=== PATIENT | male | born 1925 | race Caucasian/White ===

== ENCOUNTER 2016-08-20 10:37 | Inpatient (IN) | payer MEDICARE, MEDICAID ==
--- NOTE | 2016-08-20 11:22 | ER Document Report ---
ED General - General Chief Complaint: Altered Mental Status Stated Complaint: ALTERED MENTAL STATUS Time seen by provider: 11:21 Mode of Arrival: Medic Information source: Transfer Record, Emergency Med Personnel Notes: This is an 89-year-old gentleman with a history of chronic kidney disease, COPD hypertension, hypothyroidism, CHF cognitive communication deficit, pulmonary fibrosis. Patient is brought in from [facility] because of the disorientation and altered mental status. Records report that he is normally alert and oriented 3. I called the patient's son who was on his way back from [place]. The patient's son states that the patient at baseline has fluctuating mental status Atif his 50% of the time is good, 50% of the time is confused). The patient is in the shelter/rehabilitation facility after a recent hip ORIF and knee surgery and is currently undergoing physical therapy. He is able to walk approximately 25 steps with assistance in therapy. Otherwise, he is not been ambulatory. TRAVEL OUTSIDE OF THE [place] IN LAST 30 DAYS: No - HPI Onset: Just prior to arrival Onset/Duration: Gradual Quality of pain: No pain Severity: None Pain Level: Denies Associated symptoms: Nonproductive cough. denies: Chills, Fever Exacerbated by: Denies Relieved by: Denies - Related Data Allergies/Adverse Reactions: No Known Allergies Allergy (Verified 06/03/16 08:26) Home Medications: Current Home Medications Lorazepam [Ativan 1 mg Tablet] 0.25 mg PO Q8HP PRN 08/20/16 [History] Megestrol Acetate [Megace] 400 mg PO DAILY 08/20/16 [History] Past Medical History - General Information source: Transfer Record - Social History Smoking Status: Never Smoker Cigarette use (# per day): No Chew tobacco use (# tins/day): No Frequency of alcohol use: None Drug Abuse: None Lives with: Long Term Family History: None - Past Medical History Cardiac Medical History: Reports: Hx Hypertension Denies: Hx Coronary Artery Disease, Hx Heart Attack Pulmonary Medical History: Reports: Hx COPD - 2L NC Denies: Hx Asthma, Hx Bronchitis, Hx Pneumonia Neurological Medical History: Denies: Hx Cerebrovascular Accident, Hx Seizures Endocrine Medical History: Reports: Hx Hypothyroidism Renal/ Medical History: Reports: Hx End Stage Renal Disease GI Medical History: Reports: Hx Gastroesophageal Reflux Disease Musculoskeltal Medical History: Reports Hx Arthritis - Generalized osteoarthritis Psychiatric Medical History: Reports: Hx Depression - Immunizations Hx Diphtheria, Pertussis, Tetanus Vaccination: Yes Review of Systems - Review of Systems Constitutional: denies: Chills, Fever EENT: No symptoms reported Cardiovascular: No symptoms reported Respiratory: See HPI Gastrointestinal: No symptoms reported Genitourinary: No symptoms reported Male Genitourinary: No symptoms reported Musculoskeletal: No symptoms reported Skin: No symptoms reported Hematologic/Lymphatic: No symptoms reported Neurological/Psychological: See HPI Physical Exam - Vital signs Vitals: Resp Pulse Ox 21 H 97 08/20/16 11:27 08/20/16 11:27 Notes: Physical exam: GENERAL: 89-year-old man, alert but he is confused, no distress. He does appear tachypnea with a respiratory rate of 28. His temperature is 98.9 rectally HEAD: Atraumatic, normocephalic. EYES: Pupils equal round and reactive to light, extraocular movements intact, sclera anicteric, conjunctiva are normal. ENT: Left hearing aid, nares patent, oropharynx clear without exudates. Dry mucous membranes. NECK: Normal range of motion, supple without lymphadenopathy or JVD. LUNGS: Breath sounds clear to auscultation bilaterally and equal. No wheezes rales or rhonchi. HEART: Regular rate and rhythm without murmurs, rubs or gallops. ABDOMEN: Soft, nontender, normoactive bowel sounds. No guarding, no rebound. No masses appreciated. Rectal: Brown stool, sent for study, no sacral breakdown. EXTREMITIES: Normal range of motion, no pitting or edema. No clubbing or cyanosis. NEUROLOGICAL: Cranial nerves II through XII grossly intact. Moving all extremities. SKIN: Warm, Dry, normal turgor, no rashes or lesions noted. Course - Re-evaluation Re-evalutation: 08/20/16 17:55 Note: The patient presented with decreased mental status. He did not have any respiratory complaints and there was no suspicion for pneumonia in the beginning. The patient has been afebrile. X-ray does show possible pneumonia and he is clearly dehydrated on exam and his renal function is worse than before consistent with dehydration. We'll admit for IV fluids and antibiotics. - Vital Signs Vital signs: Temp Pulse Resp BP Pulse Ox 98.4 F 69 17 136/61 H 95 08/20/16 16:53 08/20/16 11:28 08/20/16 16:01 08/20/16 16:01 08/20/16 16:01 - Laboratory Result Diagrams: 08/20/16 10:59 08/20/16 10:59 Laboratory results interpreted by me: 08/20/16 08/20/16 10:59 10:59 RBC 2.69 L Hgb 8.3 L Hct 24.5 L RDW 16.0 H Potassium 5.2 H Chloride 108 H Carbon Dioxide 18 L BUN 48 H Creatinine 2.51 H Est GFR ( Amer) 29 L Est GFR (Non-Af Amer) 24 L AST 13 L Albumin 2.9 L - Diagnostic Test Radiology reviewed: Image reviewed, Reports reviewed - Lower pneumonia - EKG Interpretation by Me Rate: Normal Rhythm: NSR - EKG shows normal sinus rhythm with a ventricular rate of 67, there is some evidence of LVH Discharge - Discharge Clinical Impression: pneumonia, dehydration Condition: Stable Disposition: HOME, SELF-CARE Admitting Provider: [facility] Unit Admitted: Medical Floor
[2016-08-20 11:37] LABS: ABSOLUTE BASOPHILS # (AUTO) 0.1 10^3/uL (0.0-0.2); ABSOLUTE EOSINOPHILS # (AUTO) 0.5 10^3/uL (0.0-0.6); ABSOLUTE LYMPHOCYTES (AUTO) 1.5 10^3/uL (0.5-4.7); ABSOLUTE MONOCYTES (AUTO) 1.2 10^3/uL (0.1-1.4); ABSOLUTE NEUT (AUTO) 7.3 10^3/uL (1.7-8.2); BASOPHILS % (AUTO) 0.7 % (0-2); EOSINOPHILS % (AUTO) 4.8 % (0-6); HEMATOCRIT 24.5 % (37.9-51.0); HEMOGLOBIN 8.3 g/dL (13.5-17.0); HGB HCT DIFFERENCE 0.4; MEAN CORPUSCULAR HEMOGLOBIN 30.7 pg (27.0-33.4); MEAN CORPUSCULAR HGB CONC 33.7 g/dL (32.0-36.0); MEAN CORPUSCULAR VOLUME 91 fl (80-97); MONOCYTES % (AUTO) 11.4 % (3-13); RED BLOOD COUNT 2.69 10^6/uL (4.35-5.55); SEGMENTED NEUTROPHILS % (AUTO) 69.1 % (42-78); WHITE BLOOD COUNT 10.5 10^3/uL (4.0-10.5)
[2016-08-20 11:46] LABS: ALANINE AMINOTRANSFERASE 22 U/L (21-72); ALBUMIN 2.9 g/dL (3.5-5.0); ALKALINE PHOSPHATASE 73 U/L (38-126); ANION GAP 14 (5-19); ASPARTATE AMINO TRANSFERASE 13 U/L (17-59); BILIRUBIN,TOTAL 0.7 mg/dL (0.2-1.3); BLOOD UREA NITROGEN 48 mg/dL (7-20); CALCIUM 9.2 mg/dL (8.4-10.2); CARBON DIOXIDE 18 mmol/L (22-30); CHLORIDE 108 mmol/L (98-107); CREATININE RESULT 2.51 mg/dL (0.52-1.25); GLUCOSE 96 mg/dL (75-110); MAGNESIUM 2.1 mg/dL (1.6-2.3); POTASSIUM 5.2 mmol/L (3.6-5.0); SODIUM 139.9 mmol/L (137-145); TOTAL PROTEIN 7.1 g/dL (6.3-8.2)
[2016-08-20 11:47] LABS: ALCOHOL < 10 mg/dL (NONE DETECTED)
--- NOTE | 2016-08-20 11:48 | EKG REPORT ---
SEVERITY:- ABNORMAL ECG - SINUS RHYTHM PROBABLE LEFT VENTRICULAR HYPERTROPHY : Confirmed by: Madeline Amador 20-Aug-2016 11:48:00
[2016-08-20 12:10] LABS: APPEARANCE,URINE SLIGHTLY-CLOUDY; BILIRUBIN,URINE NEGATIVE (NEGATIVE); GLUCOSE, URINE NEGATIVE (NEGATIVE); KETONES,URINE NEGATIVE (NEGATIVE); LEUKOCYTE ESTERASE,URINE NEGATIVE (NEGATIVE); NITRITE,URINE NEGATIVE (NEGATIVE); PROTEIN,URINE NEGATIVE (NEGATIVE); URINE SPECIFIC GRAVITY 1.013; UROBILINOGEN,URINE NEGATIVE mg/dL (<2.0)
[2016-08-20] MEDS ORDERED: NORMAL SALINE 1000 ML 1,000 ML IV PRN (12:11)
[2016-08-20 12:24] LABS: URINE BARBITURATES SCREEN NEGATIVE; URINE METHADONE SCREEN NEGATIVE; URINE OPIATES LOW NEGATIVE; URINE PHENCYCLIDINE SCREEN NEGATIVE
[2016-08-20] MEDS ORDERED: LEVOFLOXACIN 500 MG/D5W RTU 100 ML IV ONE (17:54)
[2016-08-20] MEDS: NORMAL SALINE 1000 ML 1,000 ML IV PRN (18:17)
[2016-08-20] MEDS ORDERED: LOPERAMIDE HCL 2 MG PO PRN (20:15)
[2016-08-20] MEDS ORDERED: (PENDING PHARMACY ID) (Umeclidinium Brm/Vilanterol Tr [Anoro Ellipta 62.5-25 Mcg Inh] 1 EA IH SCH (20:15)
[2016-08-20] MEDS ORDERED: (PENDING PHARMACY ID) (Omeprazole [Prilosec] 20 MG) PO SCH (20:15)
[2016-08-20] MEDS ORDERED: LORAZEPAM 1 MG TABLET PO PRN (20:15)
[2016-08-20] MEDS ORDERED: (PENDING PHARMACY ID) (Acetaminophen [Acetaminophen Extra Strength] 500 MG) PO PRN (20:15)
[2016-08-20] MEDS ORDERED: (PENDING PHARMACY ID) (Ferrous Sulfate [Iron] 325 MG) PO SCH (20:15)
[2016-08-20] MEDS ORDERED: GABAPENTIN 300 MG CAPSULE PO ONE (21:00)
[2016-08-20] MEDS ORDERED: LEVOTHYROXINE SODIUM 0.025 MG TABLET PO ONE (21:00)
[2016-08-20] MEDS ORDERED: ENOXAPARIN SODIUM INJ 30 MG/0.3 ML DISP.SYRIN SUBCUT ONE (21:00)
[2016-08-20] MEDS ORDERED: AMLODIPINE BESYLATE 10 MG TABLET PO ONE (21:00)
[2016-08-20] MEDS ORDERED: FERROUS SULFATE 325 MG TABLET PO ONE (21:30)
[2016-08-20] MEDS ORDERED: LANSOPRAZOLE 15 MG TAB.RAP.DR PO ONE (21:30)
[2016-08-21] MEDS: ESCITALOPRAM OXALATE 10 MG TABLET PO SCH ×2 (00:01→21:53)
[2016-08-21 05:21] LABS: ALANINE AMINOTRANSFERASE 19 U/L (21-72); ALBUMIN 2.8 g/dL (3.5-5.0); ALKALINE PHOSPHATASE 67 U/L (38-126); ANION GAP 13 (5-19); ASPARTATE AMINO TRANSFERASE 12 U/L (17-59); BILIRUBIN,TOTAL 0.8 mg/dL (0.2-1.3); BLOOD UREA NITROGEN 37 mg/dL (7-20); CALCIUM 8.8 mg/dL (8.4-10.2); CARBON DIOXIDE 15 mmol/L (22-30); CHLORIDE 114 mmol/L (98-107); CREATININE RESULT 2.18 mg/dL (0.52-1.25); GLUCOSE 83 mg/dL (75-110); POTASSIUM 4.8 mmol/L (3.6-5.0); SODIUM 142.2 mmol/L (137-145); TOTAL PROTEIN 6.3 g/dL (6.3-8.2)
[2016-08-21 05:40] LABS: ABSOLUTE BASOPHILS # (AUTO) 0.1 10^3/uL (0.0-0.2); ABSOLUTE EOSINOPHILS # (AUTO) 0.3 10^3/uL (0.0-0.6); ABSOLUTE LYMPHOCYTES (AUTO) 1.8 10^3/uL (0.5-4.7); ABSOLUTE MONOCYTES (AUTO) 1.1 10^3/uL (0.1-1.4); ABSOLUTE NEUT (AUTO) 6.7 10^3/uL (1.7-8.2); BASOPHILS % (AUTO) 0.7 % (0-2); EOSINOPHILS % (AUTO) 3.3 % (0-6); HGB HCT DIFFERENCE 0.4; LYMPHOCYTES % (AUTO) 18.2 % (13-45); MEAN CORPUSCULAR HEMOGLOBIN 31.3 pg (27.0-33.4); MEAN CORPUSCULAR VOLUME 92 fl (80-97); MONOCYTES % (AUTO) 10.7 % (3-13); SEGMENTED NEUTROPHILS % (AUTO) 67.1 % (42-78)
[2016-08-21 05:47] LABS: HEMOGLOBIN 7.8 g/dL (13.5-17.0)
[2016-08-21] MEDS: NORMAL SALINE 1000 ML 1,000 ML IV PRN ×2 (06:48→23:45)
[2016-08-21] MEDS ORDERED: ENOXAPARIN SODIUM INJ 40 MG/0.4 ML DISP.SYRIN SUBCUT SCH (08:00)
[2016-08-21] MEDS ORDERED: LORAZEPAM 0.5 MG TABLET PO PRN (08:48)
[2016-08-21] MEDS ORDERED: LOPERAMIDE HCL 2 MG CAPSULE PO PRN (08:52)
[2016-08-21] MEDS: LOSARTAN POTASSIUM 50 MG TABLET PO SCH (11:58)
[2016-08-21] MEDS: GABAPENTIN 300 MG CAPSULE PO SCH ×3 (12:01→17:53)
[2016-08-21] MEDS: AMLODIPINE BESYLATE 10 MG TABLET PO SCH (12:02)
[2016-08-21] MEDS: LEVOTHYROXINE SODIUM 0.025 MG TABLET PO SCH (12:02)
[2016-08-21] MEDS: FERROUS SULFATE 325 MG TABLET PO SCH (12:02)
[2016-08-21] MEDS: ENOXAPARIN SODIUM INJ 30 MG/0.3 ML DISP.SYRIN SUBCUT SCH (12:03)
[2016-08-21] MEDS: LANSOPRAZOLE 15 MG TAB.RAP.DR PO SCH (12:03)
[2016-08-21 13:40] LABS: APPEARANCE,URINE CLOUDY; BILIRUBIN,URINE NEGATIVE (NEGATIVE); GLUCOSE, URINE NEGATIVE (NEGATIVE); KETONES,URINE NEGATIVE (NEGATIVE); LEUKOCYTE ESTERASE,URINE LARGE (NEGATIVE); NITRITE,URINE NEGATIVE (NEGATIVE); PROTEIN,URINE 100 mg/dL (NEGATIVE); URINE SPECIFIC GRAVITY 1.012; UROBILINOGEN,URINE NEGATIVE mg/dL (<2.0)
[2016-08-21] MEDS ORDERED: LEVOFLOXACIN 750 MG/D5W RTU 750 MG/150 ML RTUPB IV SCH (18:00)
--- NOTE | 2016-08-21 18:42 | PDOC H&P ---
History of Present Illness Admission Date/PCP: 08/20/16 18:51 AISHA WILBURN, History of Present Illness: JANAE CELESTE JR is a 89 year old male with history of baseline dementia, pulmonary fibrosis, chronic obstructive lung disease, presently resident of the long-term. He was transferred from the long-term to the emergency room because of altered mental status, in the emergency room he was evaluated, chest x-ray was done and it was felt that he has pneumonia. Patient with multiple comorbid conditions including chronic kidney disease stage IV with anemia of chronic kidney disease stage IV. History taking is a challenge because of the baseline dementia. Past Medical History Cardiac Medical History: Reports: Hypertension Pulmonary Medical History: Reports: Chronic Obstructive Pulmonary Disease (COPD ) - 2L NC, Other - Pulmonary fibrosis Endocrine Medical History: Reports: Hypothyroidism Renal/ Medical History: Reports: Chronic Kidney Disease - Stage IV GI Medical History: Reports: Gastroesophageal Reflux Disease Musculoskeltal Medical History: Reports: Arthritis - Generalized osteoarthritis Psychiatric Medical History: Reports: Depression Hematology: Reports: Anemia Social History Lives with: Skilled Nursing Smoking Status: Never Smoker Frequency of Alcohol Use: None Hx Recreational Drug Use: No Hx Prescription Drug Abuse: No Family History Family History: None Parental Family History Reviewed: Yes Children Family History Reviewed: Yes Sibling(s) Family History Reviewed.: Yes Medication/Allergy Home Medications: Amlodipine Besylate 10 mg PO DAILY 01/18/16 Escitalopram Oxalate [Lexapro 10 mg Tablet] 20 mg PO QHS 01/18/16 Ferrous Sulfate [Iron] 325 mg PO DAILY 01/18/16 Omeprazole [Prilosec] 20 mg PO DAILY 01/18/16 Losartan Potassium [Cozaar 50 mg Tablet] 100 mg PO DAILY #0 tablet 01/27/16 Loperamide HCl [Anti-Diarrheal] 2 mg PO ASDIR PRN 03/08/16 Acetaminophen [Acetaminophen Extra Strength] 500 mg PO Q6HP PRN 03/22/16 Gabapentin 300 mg PO TID 03/22/16 Ipratropium/Albuterol Sulfate [Duoneb 3 ml Ampul] 3 ml NEB RTQ6HP PRN 03/22/16 Levothyroxine Sodium [Synthroid 0.025 mg Tablet] 0.025 mg PO DAILY #0 tablet 02/01 Umeclidinium Brm/Vilanterol Tr [Anoro Ellipta 62.5-25 Mcg INH] 1 each IH DAILY 05/06/16 Lorazepam [Ativan 1 mg Tablet] 0.25 mg PO Q8HP PRN 08/20/16 Megestrol Acetate [Megace] 400 mg PO DAILY 08/20/16 Allergies/Adverse Reactions: No Known Allergies Allergy (Verified 06/03/16 08:26) Review of Systems ROS unobtainable: Due to mental status Physical Exam Vital Signs: Temp Pulse Resp BP Pulse Ox 97.9 F 77 16 139/57 H 96 08/21/16 14:00 08/21/16 16:00 08/21/16 16:00 08/21/16 14:00 08/21/16 16:00 Intake & Output 08/20/16 08/21/16 08/22/16 06:59 06:59 06:59 Intake Total 1100 400 Output Total 1000 1000 Balance 100 -600 Weight 49.7 kg General appearance: PRESENT: hard of hearing, other - Patient is very confused Head exam: PRESENT: atraumatic, normocephalic Eye exam: PRESENT: PERRLA Mouth exam: PRESENT: neck supple Neck exam: PRESENT: full ROM Respiratory exam: PRESENT: crackles Cardiovascular exam: PRESENT: +S1, +S2 Vascular exam: PRESENT: normal capillary refill GI/Abdominal exam: PRESENT: normal bowel sounds, soft Rectal exam: PRESENT: deferred Neurological exam: PRESENT: alert - But confused Results Laboratory Results: 08/21/16 05:32 08/21/16 04:43 08/21/16 08/21/16 08/21/16 04:43 04:43 05:32 WBC Cancelled 10.0 RBC Cancelled 2.50 L Hgb Cancelled 7.8 L Hct Cancelled 23.0 L MCV Cancelled 92 MCH Cancelled 31.3 MCHC Cancelled 34.0 RDW Cancelled 16.0 H Plt Count Cancelled 310 Seg Neutrophils % Cancelled 67.1 Lymphocytes % Cancelled 18.2 Monocytes % Cancelled 10.7 Eosinophils % Cancelled 3.3 Basophils % Cancelled 0.7 Absolute Neutrophils Cancelled 6.7 Absolute Lymphocytes Cancelled 1.8 Absolute Monocytes Cancelled 1.1 Absolute Eosinophils Cancelled 0.3 Absolute Basophils Cancelled 0.1 Retic Count (auto) Absolute Retic Sodium 142.2 Potassium 4.8 Chloride 114 H Carbon Dioxide 15 L Anion Gap 13 BUN 37 H Creatinine 2.18 H Est GFR ( Amer) 35 L Est GFR (Non-Af Amer) 29 L Glucose 83 Calcium 8.8 Iron TIBC % Saturation Ferritin Total Bilirubin 0.8 AST 12 L ALT 19 L Alkaline Phosphatase 67 Total Protein 6.3 Albumin 2.8 L Vitamin B12 Folate Urine Color Urine Appearance Urine pH Ur Specific [place] Urine Protein Urine Glucose (UA) Urine Ketones Urine Blood Urine Nitrite Ur Leukocyte Esterase Urine WBC (Auto) Urine RBC (Auto) 08/21/16 08/21/16 08/21/16 05:32 05:32 13:15 WBC RBC Hgb Hct MCV MCH MCHC RDW Plt Count Seg Neutrophils % Lymphocytes % Monocytes % Eosinophils % Basophils % Absolute Neutrophils Absolute Lymphocytes Absolute Monocytes Absolute Eosinophils Absolute Basophils Retic Count (auto) 1.44 Absolute Retic 0.036 Sodium Potassium Chloride Carbon Dioxide Anion Gap BUN Creatinine Est GFR ( Amer) Est GFR (Non-Af Amer) Glucose Calcium Iron 43 L TIBC 186 L % Saturation 23 Ferritin 900.00 H Total Bilirubin AST ALT Alkaline Phosphatase Total Protein Albumin Vitamin B12 304.0 Folate 9.80 Urine Color YELLOW Urine Appearance CLOUDY Urine pH 5.0 Ur Specific [place] 1.012 Urine Protein 100 H Urine Glucose (UA) NEGATIVE Urine Ketones NEGATIVE Urine Blood LARGE H Urine Nitrite NEGATIVE Ur Leukocyte Esterase LARGE H Urine WBC (Auto) >182 Urine RBC (Auto) >182 08/20/16 20:25 Troponin I < 0.012 Impressions: Chest X-Ray 08/20/16 13:00 IMPRESSION: Obstructive lung disease Increased interstitial markings at the bases likely pulmonary fibrosis Minimal consolidation right lateral costophrenic sulcus atelectasis versus pneumonia. Assessment & Plan - Diagnosis (1) Pneumonia Qualifiers: Pneumonia type: due to unspecified organism Laterality: unspecified laterality Lung location: unspecified part of lung Qualified Code(s) : J18.9 - Pneumonia, unspecified organism Is this a current diagnosis for this admission?: YesPlan: Patient admitted because of pneumonia, will be treated with IV antibiotic (2) Metabolic encephalopathy Is this a current diagnosis for this admission?: Yes (3) Pulmonary fibrosis Is this a current diagnosis for this admission?: Yes (4) Chronic kidney disease, stage IV (severe) Is this a current diagnosis for this admission?: Yes
[2016-08-21] MEDS ORDERED: NORMAL SALINE 250 ML IV PRN ×2 (18:46)
--- NOTE | 2016-08-21 18:46 | PDOC PROGRESS REPORT ---
Subjective Progress Note for:: 08/21/16 Subjective:: Patient is very confused, a DO NOT RESUSCITATE status, he has anemia of chronic kidney disease, he be transfused with blood Physical Exam Vital Signs: Temp Pulse Resp BP Pulse Ox 97.9 F 77 16 139/57 H 96 08/21/16 14:00 08/21/16 16:00 08/21/16 16:00 08/21/16 14:00 08/21/16 16:00 Intake & Output 08/20/16 08/21/16 08/22/16 06:59 06:59 06:59 Intake Total 1100 400 Output Total 1000 1000 Balance 100 -600 Weight 49.7 kg General appearance: PRESENT: disheveled Respiratory exam: PRESENT: crackles Cardiovascular exam: PRESENT: +S1, +S2 GI/Abdominal exam: PRESENT: soft Neurological exam: PRESENT: alert - Very confused Results Laboratory Results: 08/21/16 05:32 08/21/16 04:43 08/21/16 08/21/16 08/21/16 04:43 04:43 05:32 WBC Cancelled 10.0 RBC Cancelled 2.50 L Hgb Cancelled 7.8 L Hct Cancelled 23.0 L MCV Cancelled 92 MCH Cancelled 31.3 MCHC Cancelled 34.0 RDW Cancelled 16.0 H Plt Count Cancelled 310 Seg Neutrophils % Cancelled 67.1 Lymphocytes % Cancelled 18.2 Monocytes % Cancelled 10.7 Eosinophils % Cancelled 3.3 Basophils % Cancelled 0.7 Absolute Neutrophils Cancelled 6.7 Absolute Lymphocytes Cancelled 1.8 Absolute Monocytes Cancelled 1.1 Absolute Eosinophils Cancelled 0.3 Absolute Basophils Cancelled 0.1 Retic Count (auto) Absolute Retic Sodium 142.2 Potassium 4.8 Chloride 114 H Carbon Dioxide 15 L Anion Gap 13 BUN 37 H Creatinine 2.18 H Est GFR ( Amer) 35 L Est GFR (Non-Af Amer) 29 L Glucose 83 Calcium 8.8 Iron TIBC % Saturation Ferritin Total Bilirubin 0.8 AST 12 L ALT 19 L Alkaline Phosphatase 67 Total Protein 6.3 Albumin 2.8 L Vitamin B12 Folate Urine Color Urine Appearance Urine pH Ur Specific [place] Urine Protein Urine Glucose (UA) Urine Ketones Urine Blood Urine Nitrite Ur Leukocyte Esterase Urine WBC (Auto) Urine RBC (Auto) 08/21/16 08/21/16 08/21/16 05:32 05:32 13:15 WBC RBC Hgb Hct MCV MCH MCHC RDW Plt Count Seg Neutrophils % Lymphocytes % Monocytes % Eosinophils % Basophils % Absolute Neutrophils Absolute Lymphocytes Absolute Monocytes Absolute Eosinophils Absolute Basophils Retic Count (auto) 1.44 Absolute Retic 0.036 Sodium Potassium Chloride Carbon Dioxide Anion Gap BUN Creatinine Est GFR ( Amer) Est GFR (Non-Af Amer) Glucose Calcium Iron 43 L TIBC 186 L % Saturation 23 Ferritin 900.00 H Total Bilirubin AST ALT Alkaline Phosphatase Total Protein Albumin Vitamin B12 304.0 Folate 9.80 Urine Color YELLOW Urine Appearance CLOUDY Urine pH 5.0 Ur Specific [place] 1.012 Urine Protein 100 H Urine Glucose (UA) NEGATIVE Urine Ketones NEGATIVE Urine Blood LARGE H Urine Nitrite NEGATIVE Ur Leukocyte Esterase LARGE H Urine WBC (Auto) >182 Urine RBC (Auto) >182 08/20/16 20:25 Troponin I < 0.012 Impressions: Chest X-Ray 08/20/16 13:00 IMPRESSION: Obstructive lung disease Increased interstitial markings at the bases likely pulmonary fibrosis Minimal consolidation right lateral costophrenic sulcus atelectasis versus pneumonia. Assessment & Plan - Diagnosis (1) Pneumonia Qualifiers: Pneumonia type: due to unspecified organism Laterality: unspecified laterality Lung location: unspecified part of lung Qualified Code(s) : J18.9 - Pneumonia, unspecified organism Is this a current diagnosis for this admission?: Yes (2) Metabolic encephalopathy Is this a current diagnosis for this admission?: Yes (3) Pulmonary fibrosis Is this a current diagnosis for this admission?: Yes (4) Chronic kidney disease, stage IV (severe) Is this a current diagnosis for this admission?: Yes (5) Anemia in chronic kidney disease Is this a current diagnosis for this admission?: YesPlan: He will be transfused with blood thank you
[2016-08-22] MEDS: IPRATROPIUM/ALBUTEROL 0.5-2.5 MG/3 ML AMPUL NEB PRN (04:49)
[2016-08-22] MEDS: ACETAMINOPHEN 325 MG TABLET PO PRN (05:03)
[2016-08-22 06:34] LABS: ABSOLUTE EOSINOPHILS # (AUTO) 0.3 10^3/uL (0.0-0.6); ABSOLUTE MONOCYTES (AUTO) 1.2 10^3/uL (0.1-1.4); ABSOLUTE NEUT (AUTO) 8.6 10^3/uL (1.7-8.2); ALANINE AMINOTRANSFERASE 21 U/L (21-72); ALBUMIN 2.8 g/dL (3.5-5.0); ALKALINE PHOSPHATASE 71 U/L (38-126); ANION GAP 15 (5-19); ASPARTATE AMINO TRANSFERASE 13 U/L (17-59); BASOPHILS % (AUTO) 0.4 % (0-2); BILIRUBIN,TOTAL 0.8 mg/dL (0.2-1.3); BLOOD UREA NITROGEN 27 mg/dL (7-20); CALCIUM 8.8 mg/dL (8.4-10.2); CARBON DIOXIDE 13 mmol/L (22-30); CHLORIDE 115 mmol/L (98-107); CREATININE RESULT 1.84 mg/dL (0.52-1.25); EOSINOPHILS % (AUTO) 2.6 % (0-6); GLUCOSE 97 mg/dL (75-110); HEMATOCRIT 21.7 % (37.9-51.0); HGB HCT DIFFERENCE -0.1; LYMPHOCYTES % (AUTO) 16.5 % (13-45); MEAN CORPUSCULAR HEMOGLOBIN 30.2 pg (27.0-33.4); MEAN CORPUSCULAR HGB CONC 33.2 g/dL (32.0-36.0); MEAN CORPUSCULAR VOLUME 91 fl (80-97); MONOCYTES % (AUTO) 9.7 % (3-13); POTASSIUM 3.9 mmol/L (3.6-5.0); RED BLOOD COUNT 2.39 10^6/uL (4.35-5.55); RED CELL DISTRIBUTION WIDTH 15.6 % (11.5-14.0); SEGMENTED NEUTROPHILS % (AUTO) 70.8 % (42-78); SODIUM 142.7 mmol/L (137-145); TOTAL PROTEIN 6.3 g/dL (6.3-8.2); WHITE BLOOD COUNT 12.1 10^3/uL (4.0-10.5)
[2016-08-22 06:37] LABS: HEMOGLOBIN 7.2 g/dL (13.5-17.0)
[2016-08-22] MEDS: GABAPENTIN 300 MG CAPSULE PO SCH ×3 (09:22→17:05)
[2016-08-22] MEDS: LANSOPRAZOLE 15 MG TAB.RAP.DR PO SCH (09:22)
[2016-08-22] MEDS: LEVOTHYROXINE SODIUM 0.025 MG TABLET PO SCH (09:22)
[2016-08-22] MEDS: ENOXAPARIN SODIUM INJ 30 MG/0.3 ML DISP.SYRIN SUBCUT SCH (09:22)
[2016-08-22] MEDS: LOSARTAN POTASSIUM 50 MG TABLET PO SCH (09:22)
[2016-08-22] MEDS: FERROUS SULFATE 325 MG TABLET PO SCH (09:22)
[2016-08-22] MEDS: AMLODIPINE BESYLATE 10 MG TABLET PO SCH (09:22)
[2016-08-22] MEDS ORDERED: LEVOFLOXACIN 500 MG/D5W RTU 500 MG/100 ML RTUPB IV SCH (10:00)
[2016-08-22 16:20] LABS: HGB HCT DIFFERENCE -1.3; MEAN CORPUSCULAR HEMOGLOBIN 28.4 pg (27.0-33.4); MEAN CORPUSCULAR HGB CONC 31.9 g/dL (32.0-36.0); MEAN CORPUSCULAR VOLUME 89 fl (80-97); RED BLOOD COUNT 3.47 10^6/uL (4.35-5.55); RED CELL DISTRIBUTION WIDTH 16.9 % (11.5-14.0); WHITE BLOOD COUNT 11.2 10^3/uL (4.0-10.5)
[2016-08-22 16:26] LABS: HEMOGLOBIN 9.9 g/dL (13.5-17.0)
[2016-08-22] MEDS: LEVOFLOXACIN 500 MG/D5W RTU 500 MG/100 ML RTUPB IV SCH (17:05)
--- NOTE | 2016-08-22 19:49 | PDOC PROGRESS REPORT ---
Subjective Progress Note for:: 08/22/16 Subjective:: Patient was seen by the bedside, very hard of hearing Physical Exam Vital Signs: Temp Pulse Resp BP Pulse Ox 98.3 F 86 16 160/60 H 99 08/22/16 15:22 08/22/16 16:00 08/22/16 16:00 08/22/16 15:22 08/22/16 16:00 Intake & Output 08/21/16 08/22/16 08/23/16 06:59 06:59 06:59 Intake Total 1100 1060 1270 Output Total 1000 1600 400 Balance 100 -540 870 Weight 49.7 kg 49.7 kg General appearance: PRESENT: no acute distress Eye exam: PRESENT: PERRLA Respiratory exam: PRESENT: crackles Cardiovascular exam: PRESENT: +S1, +S2 GI/Abdominal exam: PRESENT: soft Neurological exam: PRESENT: alert Results Laboratory Results: 08/22/16 15:40 08/22/16 05:55 08/21/16 08/21/16 08/22/16 05:32 20:00 05:55 WBC 12.1 H RBC 2.39 L Hgb 7.2 L Hct 21.7 L MCV 91 MCH 30.2 MCHC 33.2 RDW 15.6 H Plt Count 277 Seg Neutrophils % 70.8 Lymphocytes % 16.5 Monocytes % 9.7 Eosinophils % 2.6 Basophils % 0.4 Absolute Neutrophils 8.6 H Absolute Lymphocytes 2.0 Absolute Monocytes 1.2 Absolute Eosinophils 0.3 Absolute Basophils 0.0 Sodium Potassium Chloride Carbon Dioxide Anion Gap BUN Creatinine Est GFR ( Amer) Est GFR (Non-Af Amer) Glucose Calcium Transferrin 128 L Total Bilirubin AST ALT Alkaline Phosphatase Total Protein Albumin Blood Type O POSITIVE Antibody Screen NEGATIVE 08/22/16 08/22/16 05:55 15:40 WBC 11.2 H RBC 3.47 L Hgb 9.9 L D Hct 31.0 L MCV 89 MCH 28.4 MCHC 31.9 L RDW 16.9 H Plt Count 266 Seg Neutrophils % Lymphocytes % Monocytes % Eosinophils % Basophils % Absolute Neutrophils Absolute Lymphocytes Absolute Monocytes Absolute Eosinophils Absolute Basophils Sodium 142.7 Potassium 3.9 Chloride 115 H Carbon Dioxide 13 L Anion Gap 15 BUN 27 H Creatinine 1.84 H Est GFR ( Amer) 42 L Est GFR (Non-Af Amer) 35 L Glucose 97 Calcium 8.8 Transferrin Total Bilirubin 0.8 AST 13 L ALT 21 Alkaline Phosphatase 71 Total Protein 6.3 Albumin 2.8 L Blood Type Antibody Screen 08/20/16 20:25 Troponin I < 0.012 Impressions: Chest X-Ray 08/20/16 13:00 IMPRESSION: Obstructive lung disease Increased interstitial markings at the bases likely pulmonary fibrosis Minimal consolidation right lateral costophrenic sulcus atelectasis versus pneumonia. Assessment & Plan - Diagnosis (1) Pneumonia Qualifiers: Pneumonia type: due to unspecified organism Laterality: unspecified laterality Lung location: unspecified part of lung Qualified Code(s) : J18.9 - Pneumonia, unspecified organism Is this a current diagnosis for this admission?: YesPlan: Patient admitted because of pneumonia, will be treated with IV antibiotic (2) Metabolic encephalopathy Is this a current diagnosis for this admission?: Yes (3) Pulmonary fibrosis Is this a current diagnosis for this admission?: Yes (4) Chronic kidney disease, stage IV (severe) Is this a current diagnosis for this admission?: Yes (5) Anemia in chronic kidney disease Is this a current diagnosis for this admission?: Yes
[2016-08-22] MEDS: ESCITALOPRAM OXALATE 10 MG TABLET PO SCH (21:59)
[2016-08-23] MEDS: IPRATROPIUM/ALBUTEROL 0.5-2.5 MG/3 ML AMPUL NEB PRN ×2 (01:30→09:50)
[2016-08-23 06:29] LABS: ABSOLUTE BASOPHILS # (AUTO) 0.1 10^3/uL (0.0-0.2); ABSOLUTE EOSINOPHILS # (AUTO) 0.1 10^3/uL (0.0-0.6); ABSOLUTE MONOCYTES (AUTO) 1.3 10^3/uL (0.1-1.4); ABSOLUTE NEUT (AUTO) 10.5 10^3/uL (1.7-8.2); BASOPHILS % (AUTO) 0.6 % (0-2); EOSINOPHILS % (AUTO) 0.8 % (0-6); HEMATOCRIT 28.1 % (37.9-51.0); HEMOGLOBIN 9.1 g/dL (13.5-17.0); HGB HCT DIFFERENCE -0.8; LYMPHOCYTES % (AUTO) 7.9 % (13-45); MEAN CORPUSCULAR HGB CONC 32.6 g/dL (32.0-36.0); MEAN CORPUSCULAR VOLUME 89 fl (80-97); MONOCYTES % (AUTO) 10.1 % (3-13); RED BLOOD COUNT 3.15 10^6/uL (4.35-5.55); RED CELL DISTRIBUTION WIDTH 17.3 % (11.5-14.0); SEGMENTED NEUTROPHILS % (AUTO) 80.6 % (42-78)
[2016-08-23 06:52] LABS: ALANINE AMINOTRANSFERASE 19 U/L (21-72); ALBUMIN 2.5 g/dL (3.5-5.0); ALKALINE PHOSPHATASE 68 U/L (38-126); ANION GAP 14 (5-19); ASPARTATE AMINO TRANSFERASE 16 U/L (17-59); BILIRUBIN,TOTAL 0.7 mg/dL (0.2-1.3); BLOOD UREA NITROGEN 24 mg/dL (7-20); CALCIUM 8.9 mg/dL (8.4-10.2); CARBON DIOXIDE 17 mmol/L (22-30); CHLORIDE 114 mmol/L (98-107); CREATININE RESULT 1.83 mg/dL (0.52-1.25); GLUCOSE 102 mg/dL (75-110); POTASSIUM 4.2 mmol/L (3.6-5.0); SODIUM 144.5 mmol/L (137-145); TOTAL PROTEIN 6.5 g/dL (6.3-8.2)
[2016-08-23] MEDS: ENOXAPARIN SODIUM INJ 30 MG/0.3 ML DISP.SYRIN SUBCUT SCH (08:10)
[2016-08-23] MEDS: LEVOTHYROXINE SODIUM 0.025 MG TABLET PO SCH (09:52)
[2016-08-23] MEDS: LOSARTAN POTASSIUM 50 MG TABLET PO SCH (09:52)
[2016-08-23] MEDS: GABAPENTIN 300 MG CAPSULE PO SCH ×3 (09:53→17:56)
[2016-08-23] MEDS: FERROUS SULFATE 325 MG TABLET PO SCH (09:54)
[2016-08-23] MEDS: LANSOPRAZOLE 15 MG TAB.RAP.DR PO SCH (09:54)
[2016-08-23] MEDS: AMLODIPINE BESYLATE 10 MG TABLET PO SCH (09:54)
--- NOTE | 2016-08-23 16:13 | PDOC PROGRESS REPORT ---
Subjective Progress Note for:: 08/23/16 Subjective:: Patient was seen but the bedside, he is very hard of hearing, communication is always a challenge with this patient Physical Exam Vital Signs: Temp Pulse Resp BP Pulse Ox 97.5 F 84 16 128/62 H 100 08/23/16 12:00 08/23/16 14:00 08/23/16 12:00 08/23/16 12:00 08/23/16 12:00 Intake & Output 08/22/16 08/23/16 08/24/16 06:59 06:59 06:59 Intake Total 1060 1645 300 Output Total 1600 1000 300 Balance -540 645 0 Weight 49.7 kg 49.7 kg General appearance: PRESENT: no acute distress Eye exam: PRESENT: PERRLA Respiratory exam: PRESENT: crackles Cardiovascular exam: PRESENT: +S1, +S2 GI/Abdominal exam: PRESENT: soft Neurological exam: PRESENT: alert Results Laboratory Results: 08/23/16 06:00 08/23/16 06:00 08/21/16 08/22/16 08/23/16 20:00 15:40 06:00 WBC 11.2 H 13.0 H RBC 3.47 L 3.15 L Hgb 9.9 L D 9.1 L Hct 31.0 L 28.1 L MCV 89 89 MCH 28.4 29.0 MCHC 31.9 L 32.6 RDW 16.9 H 17.3 H Plt Count 266 268 Seg Neutrophils % 80.6 H Lymphocytes % 7.9 L Monocytes % 10.1 Eosinophils % 0.8 Basophils % 0.6 Absolute Neutrophils 10.5 H Absolute Lymphocytes 1.0 Absolute Monocytes 1.3 Absolute Eosinophils 0.1 Absolute Basophils 0.1 Sodium Potassium Chloride Carbon Dioxide Anion Gap BUN Creatinine Est GFR ( Amer) Est GFR (Non-Af Amer) Glucose Calcium Total Bilirubin AST ALT Alkaline Phosphatase Total Protein Albumin Blood Type O POSITIVE Antibody Screen NEGATIVE 08/23/16 06:00 WBC RBC Hgb Hct MCV MCH MCHC RDW Plt Count Seg Neutrophils % Lymphocytes % Monocytes % Eosinophils % Basophils % Absolute Neutrophils Absolute Lymphocytes Absolute Monocytes Absolute Eosinophils Absolute Basophils Sodium 144.5 Potassium 4.2 Chloride 114 H Carbon Dioxide 17 L Anion Gap 14 BUN 24 H Creatinine 1.83 H Est GFR ( Amer) 42 L Est GFR (Non-Af Amer) 35 L Glucose 102 Calcium 8.9 Total Bilirubin 0.7 AST 16 L ALT 19 L Alkaline Phosphatase 68 Total Protein 6.5 Albumin 2.5 L Blood Type Antibody Screen 08/20/16 20:25 Troponin I < 0.012 Impressions: Chest X-Ray 08/20/16 13:00 IMPRESSION: Obstructive lung disease Increased interstitial markings at the bases likely pulmonary fibrosis Minimal consolidation right lateral costophrenic sulcus atelectasis versus pneumonia. Assessment & Plan - Diagnosis (1) Pneumonia Qualifiers: Pneumonia type: due to unspecified organism Laterality: unspecified laterality Lung location: unspecified part of lung Qualified Code(s) : J18.9 - Pneumonia, unspecified organism Is this a current diagnosis for this admission?: YesPlan: Continue IV antibiotic (2) Metabolic encephalopathy Is this a current diagnosis for this admission?: Yes (3) Pulmonary fibrosis Is this a current diagnosis for this admission?: Yes (4) Chronic kidney disease, stage IV (severe) Is this a current diagnosis for this admission?: Yes (5) Anemia in chronic kidney disease Is this a current diagnosis for this admission?: Yes
[2016-08-23] MEDS: ESCITALOPRAM OXALATE 10 MG TABLET PO SCH (21:41)
[2016-08-24] MEDS: ENOXAPARIN SODIUM INJ 30 MG/0.3 ML DISP.SYRIN SUBCUT SCH (08:05)
[2016-08-24] MEDS: AMLODIPINE BESYLATE 10 MG TABLET PO SCH (10:06)
[2016-08-24] MEDS: FERROUS SULFATE 325 MG TABLET PO SCH (10:06)
[2016-08-24] MEDS: GABAPENTIN 300 MG CAPSULE PO SCH ×3 (10:06→17:48)
[2016-08-24] MEDS: LANSOPRAZOLE 15 MG TAB.RAP.DR PO SCH (10:06)
[2016-08-24] MEDS: LOSARTAN POTASSIUM 50 MG TABLET PO SCH (10:06)
[2016-08-24] MEDS: LEVOTHYROXINE SODIUM 0.025 MG TABLET PO SCH (10:06)
[2016-08-24] MEDS: NORMAL SALINE 1000 ML 1,000 ML IV PRN (10:09)
[2016-08-24] MEDS: IPRATROPIUM/ALBUTEROL 0.5-2.5 MG/3 ML AMPUL NEB PRN (10:30)
--- NOTE | 2016-08-24 16:28 | PDOC PROGRESS REPORT ---
Subjective Progress Note for:: 08/24/16 Subjective:: Patient's condition is about the same Physical Exam Vital Signs: Temp Pulse Resp BP Pulse Ox 98.1 F 76 18 131/74 H 96 08/24/16 12:00 08/24/16 14:00 08/24/16 12:00 08/24/16 12:00 08/24/16 12:00 Intake & Output 08/23/16 08/24/16 08/25/16 06:59 06:59 06:59 Intake Total 1645 928 300 Output Total 1000 1400 400 Balance 645 -472 -100 Weight 49.7 kg 50.6 kg General appearance: PRESENT: no acute distress Eye exam: PRESENT: PERRLA Respiratory exam: PRESENT: crackles Cardiovascular exam: PRESENT: +S1, +S2 GI/Abdominal exam: PRESENT: soft Results Laboratory Results: 08/23/16 06:00 08/23/16 06:00 08/21/16 20:00 PTH Intact 20 08/20/16 20:25 Troponin I < 0.012 Impressions: Chest X-Ray 08/20/16 13:00 IMPRESSION: Obstructive lung disease Increased interstitial markings at the bases likely pulmonary fibrosis Minimal consolidation right lateral costophrenic sulcus atelectasis versus pneumonia. Assessment & Plan - Diagnosis (1) Pneumonia Qualifiers: Pneumonia type: due to unspecified organism Laterality: unspecified laterality Lung location: unspecified part of lung Qualified Code(s) : J18.9 - Pneumonia, unspecified organism Is this a current diagnosis for this admission?: Yes (2) Metabolic encephalopathy Is this a current diagnosis for this admission?: Yes (3) Pulmonary fibrosis Is this a current diagnosis for this admission?: Yes (4) Chronic kidney disease, stage IV (severe) Is this a current diagnosis for this admission?: Yes (5) Anemia in chronic kidney disease Is this a current diagnosis for this admission?: Yes
[2016-08-24] MEDS: LEVOFLOXACIN 500 MG/D5W RTU 500 MG/100 ML RTUPB IV SCH (17:47)
[2016-08-24] MEDS: ESCITALOPRAM OXALATE 10 MG TABLET PO SCH (21:30)
[2016-08-25] MEDS: ENOXAPARIN SODIUM INJ 30 MG/0.3 ML DISP.SYRIN SUBCUT SCH (08:17)
[2016-08-25] MEDS: LEVOTHYROXINE SODIUM 0.025 MG TABLET PO SCH (11:32)
[2016-08-25] MEDS: LANSOPRAZOLE 15 MG TAB.RAP.DR PO SCH (11:32)
[2016-08-25] MEDS: FERROUS SULFATE 325 MG TABLET PO SCH (11:32)
[2016-08-25] MEDS: AMLODIPINE BESYLATE 10 MG TABLET PO SCH (11:33)
[2016-08-25] MEDS: GABAPENTIN 300 MG CAPSULE PO SCH ×3 (11:33→17:14)
[2016-08-25] MEDS: LOSARTAN POTASSIUM 50 MG TABLET PO SCH (11:34)
[2016-08-25] MEDS: ESCITALOPRAM OXALATE 10 MG TABLET PO SCH (21:09)
[2016-08-26] MEDS: AMLODIPINE BESYLATE 10 MG TABLET PO SCH (09:05)
[2016-08-26] MEDS: LANSOPRAZOLE 15 MG TAB.RAP.DR PO SCH (09:05)
[2016-08-26] MEDS: ENOXAPARIN SODIUM INJ 30 MG/0.3 ML DISP.SYRIN SUBCUT SCH (09:06)
[2016-08-26] MEDS: LEVOTHYROXINE SODIUM 0.025 MG TABLET PO SCH (09:06)
[2016-08-26] MEDS: GABAPENTIN 300 MG CAPSULE PO SCH ×3 (09:06→17:46)
[2016-08-26] MEDS: LOSARTAN POTASSIUM 50 MG TABLET PO SCH (09:06)
[2016-08-26] MEDS: FERROUS SULFATE 325 MG TABLET PO SCH (09:06)
[2016-08-26] MEDS: LEVOFLOXACIN 500 MG TABLET PO SCH (17:46)
--- NOTE | 2016-08-26 19:58 | PDOC PROGRESS REPORT ---
Subjective Progress Note for:: 08/25/16 Subjective:: Patient was seen by the bedside, he has baseline dementia admitted because of pneumonia Physical Exam Vital Signs: Temp Pulse Resp BP Pulse Ox 97.4 F 85 20 121/48 L 95 08/25/16 16:00 08/25/16 16:28 08/25/16 16:28 08/25/16 16:00 08/25/16 16:28 Intake & Output 08/24/16 08/25/16 08/26/16 06:59 06:59 06:59 Intake Total 928 1785 1022 Output Total 1400 1650 900 Balance -472 135 122 Weight 50.6 kg 64.6 kg General appearance: PRESENT: no acute distress Eye exam: PRESENT: PERRLA Cardiovascular exam: PRESENT: +S1, +S2 Neurological exam: PRESENT: alert Results Laboratory Results: 08/23/16 06:00 08/23/16 06:00 08/20/16 20:25 Troponin I < 0.012 Impressions: Chest X-Ray 08/20/16 13:00 IMPRESSION: Obstructive lung disease Increased interstitial markings at the bases likely pulmonary fibrosis Minimal consolidation right lateral costophrenic sulcus atelectasis versus pneumonia. Assessment & Plan - Diagnosis (1) Pneumonia Qualifiers: Pneumonia type: due to unspecified organism Laterality: unspecified laterality Lung location: unspecified part of lung Qualified Code(s) : J18.9 - Pneumonia, unspecified organism Is this a current diagnosis for this admission?: Yes (2) Metabolic encephalopathy Is this a current diagnosis for this admission?: Yes (3) Pulmonary fibrosis Is this a current diagnosis for this admission?: Yes (4) Chronic kidney disease, stage IV (severe) Is this a current diagnosis for this admission?: Yes (5) Anemia in chronic kidney disease Is this a current diagnosis for this admission?: Yes
[2016-08-26] MEDS: ESCITALOPRAM OXALATE 10 MG TABLET PO SCH (22:24)
[2016-08-27] MEDS: ENOXAPARIN SODIUM INJ 30 MG/0.3 ML DISP.SYRIN SUBCUT SCH (07:58)
[2016-08-27] MEDS: FERROUS SULFATE 325 MG TABLET PO SCH (09:55)
[2016-08-27] MEDS: LEVOTHYROXINE SODIUM 0.025 MG TABLET PO SCH (09:55)
[2016-08-27] MEDS: LANSOPRAZOLE 15 MG TAB.RAP.DR PO SCH (09:55)
[2016-08-27] MEDS: LOSARTAN POTASSIUM 50 MG TABLET PO SCH (09:55)
[2016-08-27] MEDS: GABAPENTIN 300 MG CAPSULE PO SCH ×3 (09:55→17:29)
[2016-08-27] MEDS: AMLODIPINE BESYLATE 10 MG TABLET PO SCH (09:56)
[2016-08-27] MEDS: IPRATROPIUM/ALBUTEROL 0.5-2.5 MG/3 ML AMPUL NEB PRN (16:22)
--- NOTE | 2016-08-27 17:04 | PDOC PROGRESS REPORT ---
Subjective Progress Note for:: 09/03/16 Subjective:: The nurses said patient is aspirating, he is very hard of hearing Physical Exam Vital Signs: Temp Pulse Resp BP Pulse Ox 98.7 F 88 22 H 124/63 94 08/27/16 11:26 08/27/16 16:24 08/27/16 16:24 08/27/16 11:26 08/27/16 16:24 Intake & Output 08/26/16 08/27/16 08/28/16 06:59 06:59 06:59 Intake Total 1582 2799 1100 Output Total 1300 750 Balance 282 2049 1100 Weight 64 kg 55.3 kg General appearance: PRESENT: no acute distress Eye exam: PRESENT: PERRLA Respiratory exam: PRESENT: wheezes Cardiovascular exam: PRESENT: +S1, +S2 GI/Abdominal exam: PRESENT: soft Results Laboratory Results: 08/23/16 06:00 08/23/16 06:00 08/20/16 20:25 Troponin I < 0.012 Impressions: Chest X-Ray 08/20/16 13:00 IMPRESSION: Obstructive lung disease Increased interstitial markings at the bases likely pulmonary fibrosis Minimal consolidation right lateral costophrenic sulcus atelectasis versus pneumonia. Assessment & Plan - Diagnosis (1) Pneumonia Qualifiers: Pneumonia type: due to unspecified organism Laterality: unspecified laterality Lung location: unspecified part of lung Qualified Code(s) : J18.9 - Pneumonia, unspecified organism Is this a current diagnosis for this admission?: Yes (2) Metabolic encephalopathy Is this a current diagnosis for this admission?: Yes (3) Pulmonary fibrosis Is this a current diagnosis for this admission?: YesPlan: He has severe pulmonary fibrosis, on auscultation of his lung today. There is diffuse wheeze already on when necessary nebs treatment (4) Chronic kidney disease, stage IV (severe) Is this a current diagnosis for this admission?: Yes (5) Anemia in chronic kidney disease Is this a current diagnosis for this admission?: Yes
--- NOTE | 2016-08-27 17:05 | PDOC PROGRESS REPORT ---
Subjective Progress Note for:: 08/26/16 Subjective:: Patient was seen by the bedside, he probably will be discharged back [facility] the next few days Physical Exam Vital Signs: Temp Pulse Resp BP Pulse Ox 98.3 F 76 24 H 127/53 H 100 08/26/16 16:29 08/26/16 16:29 08/26/16 16:29 08/26/16 16:29 08/26/16 17:48 Intake & Output 08/25/16 08/26/16 08/27/16 06:59 06:59 06:59 Intake Total 1785 1582 620 Output Total 1650 1300 400 Balance 135 282 220 Weight 64.6 kg 64 kg General appearance: PRESENT: no acute distress Eye exam: PRESENT: PERRLA Respiratory exam: PRESENT: rhonchi Cardiovascular exam: PRESENT: +S1, +S2 Results Laboratory Results: 08/23/16 06:00 08/23/16 06:00 08/20/16 20:25 Troponin I < 0.012 Impressions: Chest X-Ray 08/20/16 13:00 IMPRESSION: Obstructive lung disease Increased interstitial markings at the bases likely pulmonary fibrosis Minimal consolidation right lateral costophrenic sulcus atelectasis versus pneumonia. Assessment & Plan - Diagnosis (1) Pneumonia Qualifiers: Pneumonia type: due to unspecified organism Laterality: unspecified laterality Lung location: unspecified part of lung Qualified Code(s) : J18.9 - Pneumonia, unspecified organism Is this a current diagnosis for this admission?: Yes (2) Metabolic encephalopathy Is this a current diagnosis for this admission?: Yes (3) Pulmonary fibrosis Is this a current diagnosis for this admission?: Yes (4) Chronic kidney disease, stage IV (severe) Is this a current diagnosis for this admission?: Yes (5) Anemia in chronic kidney disease Is this a current diagnosis for this admission?: Yes
[2016-08-27] MEDS: ESCITALOPRAM OXALATE 10 MG TABLET PO SCH (23:29)
[2016-08-28] MEDS: LANSOPRAZOLE 15 MG TAB.RAP.DR PO SCH (09:14)
[2016-08-28] MEDS: AMLODIPINE BESYLATE 10 MG TABLET PO SCH (09:14)
[2016-08-28] MEDS: FERROUS SULFATE 325 MG TABLET PO SCH (09:14)
[2016-08-28] MEDS: LOSARTAN POTASSIUM 50 MG TABLET PO SCH (09:14)
[2016-08-28] MEDS: ENOXAPARIN SODIUM INJ 30 MG/0.3 ML DISP.SYRIN SUBCUT SCH (09:15)
[2016-08-28] MEDS: LEVOTHYROXINE SODIUM 0.025 MG TABLET PO SCH (09:15)
[2016-08-28] MEDS: GABAPENTIN 300 MG CAPSULE PO SCH ×3 (09:15→17:54)
[2016-08-28] MEDS: LEVOFLOXACIN 500 MG TABLET PO SCH (17:54)
[2016-08-28] MEDS: ACETAMINOPHEN 325 MG TABLET PO PRN (17:54)
--- NOTE | 2016-08-28 21:00 | PDOC TRANSFER SUMMARY ---
General - Admit/Disc Date/PCP Admission Date/Primary Care Provider: 08/20/16 18:51 AISHA WILBURN MD Discharge Date: 08/29/16 - Discharge Diagnosis (1) Pneumonia Is this a current diagnosis for this admission?: Yes (2) Metabolic encephalopathy Is this a current diagnosis for this admission?: Yes (3) Pulmonary fibrosis Is this a current diagnosis for this admission?: Yes (4) Chronic kidney disease, stage IV (severe) Is this a current diagnosis for this admission?: Yes (5) Anemia in chronic kidney disease Is this a current diagnosis for this admission?: Yes - Additional Information Home Medications: Amlodipine Besylate 10 mg PO DAILY 01/18/16 Escitalopram Oxalate [Lexapro 10 mg Tablet] 20 mg PO QHS 01/18/16 Ferrous Sulfate [Iron] 325 mg PO DAILY 01/18/16 Omeprazole [Prilosec] 20 mg PO DAILY 01/18/16 Losartan Potassium [Cozaar 50 mg Tablet] 100 mg PO DAILY #0 tablet 01/27/16 Loperamide HCl [Anti-Diarrheal] 2 mg PO ASDIR PRN 03/08/16 Acetaminophen [Acetaminophen Extra Strength] 500 mg PO Q6HP PRN 03/22/16 Gabapentin 300 mg PO TID 03/22/16 Ipratropium/Albuterol Sulfate [Duoneb 3 ml Ampul] 3 ml NEB RTQ6HP PRN 03/22/16 Levothyroxine Sodium [Synthroid 0.025 mg Tablet] 0.025 mg PO DAILY #0 tablet 02/01 Umeclidinium Brm/Vilanterol Tr [Anoro Ellipta 62.5-25 Mcg INH] 1 each IH DAILY 05/06/16 Lorazepam [Ativan 1 mg Tablet] 0.25 mg PO Q8HP PRN 08/20/16 Megestrol Acetate [Megace] 400 mg PO DAILY 08/20/16 History of Present Illness Admission Date/PCP: 08/20/16 18:51 AISHA WILBURN MD History of Present Illness: JANAE CELESTE JR is a 89 year old male with history of baseline dementia, pulmonary fibrosis, chronic obstructive lung disease, presently resident of the detention. He was transferred from the detention to the emergency room because of altered mental status, in the emergency room he was evaluated, chest x-ray was done and it was felt that he has pneumonia. Patient with multiple comorbid conditions including chronic kidney disease stage IV with anemia of chronic kidney disease stage IV. History taking is a challenge because of the baseline dementia. Hospital Course Hospital Course: Patient with baseline dementia, a DO NOT RESUSCITATE status with severe pulmonary fibrosis and COPD he was admitted because of pneumonia, he was treated with IV antibiotic, the plan is to transfer him back to detention for continued care Physical Exam Vital Signs: Temp Pulse Resp BP Pulse Ox 99.0 F 85 26 H 129/61 H 96 08/28/16 15:27 08/28/16 15:27 08/28/16 15:27 08/28/16 15:27 08/28/16 15:27 Intake & Output 08/27/16 08/28/16 08/29/16 06:59 06:59 06:59 Intake Total 2799 1350 220 Output Total 750 1000 300 Balance 2049 350 -80 Weight 55.3 kg 55.4 kg General appearance: PRESENT: no acute distress Eye exam: PRESENT: PERRLA Respiratory exam: PRESENT: crackles Cardiovascular exam: PRESENT: +S1, +S2 GI/Abdominal exam: PRESENT: soft Results Laboratory Results: 08/23/16 06:00 08/23/16 06:00 08/20/16 20:25 Troponin I < 0.012 Impressions: Chest X-Ray 08/20/16 13:00 IMPRESSION: Obstructive lung disease Increased interstitial markings at the bases likely pulmonary fibrosis Minimal consolidation right lateral costophrenic sulcus atelectasis versus pneumonia.
[2016-08-29] MEDS: ESCITALOPRAM OXALATE 10 MG TABLET PO SCH (04:09)
[2016-08-29 08:08] VITALS: BP 134/71
[2016-08-29] MEDS: LOSARTAN POTASSIUM 50 MG TABLET PO SCH (10:02)
[2016-08-29] MEDS: AMLODIPINE BESYLATE 10 MG TABLET PO SCH (10:02)
[2016-08-29] MEDS: GABAPENTIN 300 MG CAPSULE PO SCH (10:02)
[2016-08-29] MEDS: LANSOPRAZOLE 15 MG TAB.RAP.DR PO SCH (10:03)
[2016-08-29] MEDS: FERROUS SULFATE 325 MG TABLET PO SCH (10:03)
[2016-08-29] MEDS: ENOXAPARIN SODIUM INJ 30 MG/0.3 ML DISP.SYRIN SUBCUT SCH (10:03)
[2016-08-29] MEDS: LEVOTHYROXINE SODIUM 0.025 MG TABLET PO SCH (10:03)
== END 2016-08-29 12:09 | DRG 193 ==
LOC: ER 10:37 → UNDOADMIN 18:27 → EH 18:27 → 4S 21:09
PROVIDERS: ADMIT Internal Medicine; ATTEND Internal Medicine
PROC: 30233N1 Transfusion of Nonautologous Red Blood Cells into Peripheral Vein, Percutaneous Approach (ICD-10-PCS; principal; 2016-08-22)
DX: J18.9 Pneumonia, unspecified organism (principal); G93.41 Metabolic encephalopathy; N18.4 Chronic kidney disease, stage 4 (severe); I12.9 Hypertensive chronic kidney disease with stage 1 through stage 4 chronic kidney disease, or unspecified chronic kidney disease; J84.10 Pulmonary fibrosis, unspecified; D63.1 Anemia in chronic kidney disease; F03.90 Unspecified dementia, unspecified severity, without behavioral disturbance, psychotic disturbance, mood disturbance, and anxiety; Z66 Do not resuscitate; J44.9 Chronic obstructive pulmonary disease, unspecified; E03.9 Hypothyroidism, unspecified; K21.9 Gastro-esophageal reflux disease without esophagitis; M15.9 Polyosteoarthritis, unspecified; F32.9 Major depressive disorder, single episode, unspecified; Z79.899 Other long term (current) drug therapy
CPT/HCPCS: 36415; 36430; 71010; 80053; 80307; 81001; 82272; 82607; 82728; 82746; 83036; 83540; 83550; 83735; 83970; 84466; 84484; 85025; 85027; 85045; 86850; 86900; 86901; 86920; 87040; 93005; 93010; 94640; 96360; 99285; J1650; J1956; J3490; J7030; J7620; P9016

== ENCOUNTER 2016-08-30 08:13 | Emergency (ER) | payer MEDICARE, MEDICAID ==
[2016-08-30] MEDS ORDERED: IPRATROPIUM/ALBUTEROL 0.5-2.5 MG/3 ML AMPUL NEB ONE (08:24)
[2016-08-30] MEDS ORDERED: ALBUTEROL SULFATE 0.083% NEB 2.5 MG/3 ML AMPUL NEB ONE (10:34)
--- NOTE | 2016-08-30 10:34 | ER Document Report ---
ED General - General Chief Complaint: Nonproductive Cough Stated Complaint: ALTERED MENTAL STATUS TRAVEL OUTSIDE OF THE [place] IN LAST 30 DAYS: No - HPI Patient complains to provider of: low blood pressure increased respiratory rate nonproductive cough ams Notes: Patient coming in from local nursing care facility at the above stated complaints. According to EMS there called out due to patient having increased respiratory rate approximately 30 and low blood pressure approximate 80 systolic. According to report the [facility] are and stated patient was unarousable. Upon EMS arrival check the vital signs showed patient with normal vital signs patient was arousable however prior to their arrival with family had contacted the [facility] and requested transport to the ER for further evaluation. Patient with recent admission to the hospital and discharged after having pneumonia. Patient is a DNR/DNI according to [facility] report. Patient does have dementia. Upon entering the examination room patient looks elderly however bowel signs are within normal limits. Patient is alert however confused - Related Data Allergies/Adverse Reactions: No Known Allergies Allergy (Verified 08/30/16 08:38) Past Medical History - Social History Smoking Status: Unknown if Ever Smoked Family History: None - Past Medical History Cardiac Medical History: Reports: Hx Hypertension Denies: Hx Coronary Artery Disease, Hx Heart Attack Pulmonary Medical History: Reports: Hx COPD - 2L NC Denies: Hx Asthma, Hx Bronchitis, Hx Pneumonia Neurological Medical History: Denies: Hx Cerebrovascular Accident, Hx Seizures Endocrine Medical History: Reports: Hx Hypothyroidism Renal/ Medical History: Reports: Hx End Stage Renal Disease GI Medical History: Reports: Hx Gastroesophageal Reflux Disease Musculoskeltal Medical History: Reports Hx Arthritis - Generalized osteoarthritis Psychiatric Medical History: Reports: Hx Depression - Immunizations Hx Diphtheria, Pertussis, Tetanus Vaccination: Yes Review of Systems - Review of Systems -: Yes ROS unobtainable due to patient's medical condition - Dementia Physical Exam - Vital signs Vitals: Resp 22 H 08/30/16 08:15 Interpretation: Normal - General General appearance: Appears well, Alert - HEENT Head: Normocephalic, Atraumatic Eyes: Normal Conjunctiva: Normal Cornea: Normal Pupils: PERRL - Respiratory Respiratory status: No respiratory distress Chest status: Nontender Breath sounds: Wheezing Chest palpation: Normal - Cardiovascular Rhythm: Regular Heart sounds: Normal auscultation Murmur: No - Abdominal Inspection: Normal Distension: No distension Bowel sounds: Normal Tenderness: Nontender Organomegaly: No organomegaly - Back Back: Normal, Nontender - Extremities General upper extremity: Normal inspection, Nontender, Normal color, Normal ROM , Normal temperature General lower extremity: Normal inspection, Nontender, Normal color, Normal ROM , Normal temperature, Normal weight bearing. No: Carol's sign - Neurological Neuro grossly intact: Yes Paty Coma Scale Eye Opening: Spontaneous Paty Coma Scale Verbal: Confused Paty Coma Scale Motor: Obeys Commands Paty Coma Scale Total: 14 Sensory: Normal - Psychological Associated symptoms: Other - Dementia - Skin Skin Temperature: Warm Skin Moisture: Dry Skin Color: Normal Course - Re-evaluation Re-evalutation: 08/30/16 13:27 Patient has a history of dementia is DO NOT RESUSCITATE. Patient does have some wheezing chest x-ray was ordered. Chest x-ray shows extensive pulmonary fibrosis first patient has a history of these no signs of pneumonia. Patient's vital signs remained stable during his senior here in the ER. Family at bedside discussed our workup with family no other measures requested. Patient otherwise will be transported [facility] to the [facility]. No signs of sepsis no signs of critical etiology seen - Vital Signs Vital signs: Temp Pulse Resp BP Pulse Ox 24 H 105/65 93 08/30/16 11:41 08/30/16 11:41 08/30/16 11:41 Discharge - Discharge Clinical Impression: Pulmonary fibrosis Condition: Good Disposition: HOME-ASSISTED LIVING Additional Instructions: Patient was evaluated today with a chest x-ray. Patient's chest x-ray shows no signs of infection or pneumonia. Patient's chest x-ray does continue to show a good amount of pulmonary fibrosis. Please continue to give patient his medications as scheduled. Patent follow-up with his primary care physician. Referrals: AISHA WILBURN MD [Primary Care Provider] - Follow up as needed
[2016-08-30 11:46] VITALS: BP 105/65
== END 2016-08-30 11:45 | disposition home health service (06) ==
LOC: ER 08:13
DX: J84.10 Pulmonary fibrosis, unspecified (principal); R05 Cough; R41.82 Altered mental status, unspecified; I95.9 Hypotension, unspecified
CPT/HCPCS: 94640 ×2; 99285; 71020; A9270 ×2; J7620